=== PATIENT | male | born 1965 | race Caucasian/White ===

== ENCOUNTER 2017-03-26 08:19 | Emergency (ER) | payer OTHER ==
--- NOTE | ~2017-03-26 | ER ---
PATIENT'S NAME: SAMMY BETANCUR [facility] AGE: 51 Y [address] ROOM: [place] [address] LOCATION: [facility] ADMIT DATE: 03/26/2017 ER/Outpatient Report DISCHARGE DATE: 03/26/2017 FAMILY PHYSICIAN: Rachel Xiong MD ATTENDING PHYSICIAN: Charles Hodge CHIEF COMPLAINT: Finger injury. HISTORY OF PRESENT ILLNESS: I saw this patient in conjunction with Dr. Debora Velazquez, resident physician. Please see her dictation for complete patient evaluation. Briefly, the patient is a left-hand dominant male who was using a pocket knife to cut open a package today. The knife slipped and he developed a cut through the middle phalanx of the right index finger. He placed pressure and came in. His tetanus was updated and the area was anesthetized with 1% lidocaine. I was at bedside for wound evaluation in a bloodless field. There was no tendon involvement. The extent of the wound was determined to not involve any deep structures. Dr. Campuzano sewed up the laceration well and provided appropriate followup precautions. Sutures out in approximately 5 days to 10 days. MD TANYA LEMON/arthur /[id number] d: 03/26/17 1832 t: 04/01/17 0643, OUTPATIENT REPORT
--- NOTE | ~2017-03-26 | ER ---
PATIENT'S NAME: SAMMY BETANCUR [facility] AGE: 51 Y [address] ROOM: [place] [address] LOCATION: [facility] ADMIT DATE: 03/26/2017 ER/Outpatient Report DISCHARGE DATE: 03/26/2017 FAMILY PHYSICIAN: Rachel Xiong MD ATTENDING PHYSICIAN: Charles Hodge Time of Arrival: 0819 hours. Time of Evaluation: 0825 hours. CHIEF COMPLAINT: Finger laceration. HISTORY OF PRESENT ILLNESS: This is a 51-year-old male who presented to the ED via private car for a finger laceration on the right 2nd finger at the IP joint. He reports that he was at work cutting some wires with a pocket knife, when he slashed across his finger. He did have a significant amount of bleeding prior to coming into the ER. He does report that he has had normal strength, has been able to form a fist, and has normal feeling in the finger. He is unsure when his last tetanus shot was, but thinks it was greater than 10 years ago. He is not allergic to any medications. PAST MEDICAL HISTORY: Remarkable only for hypertension and some asthma. CURRENT MEDICATIONS: Medications were reviewed. ALLERGIES: HE HAS NO KNOWN DRUG ALLERGIES. SOCIAL HISTORY: He is nonsmoker, and no drug or alcohol use. He works at [employer] REVIEW OF SYSTEMS: As per HPI. PHYSICAL EXAMINATION: VITAL SIGNS: Blood pressure 173/93, pulse 85, respiratory rate 20, temperature 97.9, and 95% on room air. GENERAL: He is a 51-year-old male appearing his stated age, in no apparent distress. HEENT: Pupils equal, round, and reactive to light. SKIN: He has a 1.5 cm laceration at the IP joint on the palmar surface of the PATIENT'S NAME: SAMMY BETANCUR [facility] AGE: 51 Y [address] ROOM: [place] [address] LOCATION: [facility] ADMIT DATE: 03/26/2017 ER/Outpatient Report DISCHARGE DATE: 03/26/2017 FAMILY PHYSICIAN: Rachel Xiong MD ATTENDING PHYSICIAN: Charles Hodge right 2nd finger. Wound was thoroughly irrigated and examined without tendon exposure. MUSCULOSKELETAL: Normal strength with extension and flexion of the finger. NEUROLOGIC: Normal sensation of the digits. IMPRESSION: Finger laceration. EMERGENCY DEPARTMENT COURSE: The wound was thoroughly irrigated and investigated after a digital block was performed with 1% lidocaine without epinephrine. At that time, the wound was approximated using 4-0 Ethilon; 4 simple interrupted sutures were needed. The patient was advised to use ibuprofen 600 mg every 6 hours as needed or Tylenol 1000 mg every 6 hours as needed for pain. He is to follow up with his PCP, Dr. Xiong in 10 to 14 days for removal of the sutures. I Discussed return precautions for infection. He was also given a tetanus shot prior to discharge. He reported understanding and will follow up with his primary care doctor. BENIGNO HATHAWAY MD FOR MD RUBA LEMON/arthur /[id number] I have seen and evaluated this patient personally. I have reviewed the plan of care as noted above and have dictated a short note as well. Charles Hodge MD d: 03/26/17 1315 t: 04/01/17 0646, OUTPATIENT REPORT
== END 2017-03-26 09:30 | disposition disaster alternative care site (69) ==
LOC: GACC 08:19
PROC: 0HQFXZZ Repair Right Hand Skin, External Approach (ICD-10-PCS; principal; 2017-03-26)
DX: S61.210A Laceration without foreign body of right index finger without damage to nail, initial encounter (principal); I10 Essential (primary) hypertension; J45.909 Unspecified asthma, uncomplicated; Z23 Encounter for immunization; W26.0XXA Contact with knife, initial encounter